=== PATIENT | male | born 1985 | race Caucasian/White ===

== ENCOUNTER 2021-03-24 15:00 | Emergency (ER) | payer OTHER ==
[2021-03-24 16:00] VITALS: TEMP 97.8
[2021-03-24] MEDS ORDERED: LIDOCAINE 1% INJ 10MG/ML (20 ML MDV) SQ ONE (17:17)
--- NOTE | 2021-03-24 17:17 | ED ---
General Adult HPI <RadhaKrissy Levar - Last Filed: 03/24/21 17:57> - General Source: patient, RN notes reviewed, old records reviewed Mode of arrival: ambulatory Limitations: no limitations <Mani Montano - Last Filed: 03/24/21 18:22> - General Chief complaint: Head Injury Stated complaint: Facial Injury I.H.S. Time Seen by Provider: 03/24/21 16:00 - History of Present Illness Initial comments: This is a 35-year-old male who presents emergency Department complaining that she was at work and ejaculate him in the nose. Patient states he did not lose consciousness, he was not struck in the head denies any headache denies any neck pain. Patient states he was dazed for a second but never felt the ground. Patient states after swallowing some blood from the nose he vomited. Patient states currently he only complains that his nose is bleeding and his little tenderness under his right eye. Patient denies any other injury at this time. Patient denies any numbness or weakness. (Mani Montano) - Related Data Previous Rx's Medication Instructions Recorded Cephalexin [Keflex] 500 mg PO Q6HR #28 cap 03/24/21 Allergies Allergy/AdvReac Type Severity Reaction Status Date / Time No Known Allergies Allergy Verified 03/24/21 16:00 Review of Systems ROS Other: All systems not noted in ROS Statement are negative. <RadhaKrissy L - Last Filed: 03/24/21 17:57> ROS Other: All systems not noted in ROS Statement are negative. <Mani Montano - Last Filed: 03/24/21 18:22> ROS Statement: Those systems with pertinent positive or pertinent negative responses have been documented in the HPI. Past Medical History Past Medical History: No Reported History History of Any Multi-Drug Resistant Organisms: None Reported Past Surgical History: No Surgical Hx Reported Past Psychological History: No Psychological Hx Reported Smoking Status: Current every day smoker Past Alcohol Use History: Occasional Past Drug Use History: None Reported <Mani Montano - Last Filed: 03/24/21 18:22> General Exam Limitations: no limitations <Mani Montano - Last Filed: 03/24/21 18:22> - General Exam Comments Initial Comments: GENERAL: Patient is well-developed and well-nourished. Patient is nontoxic and well- hydrated and is in mild distress. ENT: Neck is soft and supple. No significant lymphadenopathy is noted. Oropharynx is clear. Moist mucous membranes. Neck has full range of motion without eliciting any pain. EYES: The sclera were anicteric and conjunctiva were pink and moist. Extraocular movements were intact and pupils were equal round and reactive to light. Patient has ecchymosis in the inferior orbital region on the right he also has a laceration measuring about 1/2 cm on the bridge of his nose and that area is also tender to palpation. PULMONARY: Unlabored respirations. Good breath sounds bilaterally. No audible rales rhonchi or wheezing was noted. CARDIOVASCULAR: There is a regular rate and rhythm without any murmurs gallops or rubs. ABDOMEN: Soft and nontender with normal bowel sounds. SKIN: Laceration 1.5 cm the nasal bridge NEUROLOGIC: Patient is alert and oriented x3. Cranial nerves II through XII are grossly intact. Motor and sensory are also intact. Normal speech, volume and content. Symmetrical smile. MUSCULOSKELETAL: Normal extremities with adequate strength and full range of motion. PSYCHIATRIC: Normal psychiatric evaluation. (Mani Montano) Course Vital Signs 03/24/21 15:58 Temperature 97.8 F Pulse Rate 94 Respiratory 18 Rate Blood Pressure 162/123 O2 Sat by Pulse 98 Oximetry Procedures - Laceration Laceration #1 Consent Obtained: verbal consent Indication: laceration Site: face (nasal bridge) Size (cm): 1 Description: linear Depth: simple, single layer Anesthetic Used: lidocaine 1% Anesthesia Technique: local infiltration Amount (mls): 2 Pre-repair: irrigated extensively Type of Sutures: nylon Size of Sutures: 5-0 Number of Sutures: 3 Technique: simple, interrupted Patient Tolerated Procedure: well <Krissy Garcia - Last Filed: 03/24/21 17:57> Medical Decision Making <Mani Montano - Last Filed: 03/24/21 18:22> - Medical Decision Making CT of the brain shows no acute abnormality. CT of the facial bones shows a comminuted mildly displaced nasal fracture. Since patient was having epistaxis when it occurred patient will be given antibiotics. (Mani Montano) Disposition <Krissy Garcia Last Filed: 03/24/21 17:57> Is patient prescribed a controlled substance at d/c from ED?: No Time of Disposition: 18:21 <Mani Montano - Last Filed: 03/24/21 18:22> Clinical Impression: Nasal bones, open fracture Disposition: HOME SELF-CARE Condition: Good Instructions (If sedation given, give patient instructions): Nasal Fracture (ED) Prescriptions: Cephalexin [Keflex] 500 mg PO Q6HR #28 cap Referrals: Gee Harvey MD [STAFF PHYSICIAN] - 1-2 days
--- NOTE | 2021-03-24 17:29 | CT ---
EXAM: CT brain wo con, CT facial bones wo con CLINICAL HISTORY: Head and facial pain/injury status post trauma. COMPARISON: None TECHNIQUE: 1. Contiguous axial noncontrast images of the brain were obtained. Imaging dose reduction techniques were utilized per protocol. 2. Axial CT images of the face were obtained without contrast. Sagittal and coronal reformats were g enerated and reviewed. Dose reduction techniques were utilized per protocol. FINDINGS: Head: There is no evidence for intracranial hemorrhage, mass effect, midline shift or acute large vessel te rritory infarct. The white matter is grossly preserved. Ventricular size and configuration is within normal limits for degree of parenchymal volume. The paranasal sinuses are clear. The mastoid air cells are clear. No evidence for calvarial fracture. Maxillofacial: There is comminuted and mildly displaced fracture of the bilateral nasal bones. There is overlying so ft tissue edema and adjacent mild right periorbital soft tissue edema. The pterygoid plates, zygomati c arches,, mandible and bilateral orbits are otherwise intact. The paranasal sinuses and mastoid air cells are adequately aerated. IMPRESSION: Nasal bone fracture. No acute intracranial abnormality.
[2021-03-24 18:44] VITALS: BP 154/87; PULSE 68; RESP 20
== END 2021-03-24 18:44 | disposition home or self-care (01) ==
LOC: EC 15:00
DX: S02.2XXB Fracture of nasal bones, initial encounter for open fracture (principal); S01.21XA Laceration without foreign body of nose, initial encounter; F17.200 Nicotine dependence, unspecified, uncomplicated; W50.0XXA Accidental hit or strike by another person, initial encounter; Y99.0 Civilian activity done for income or pay
CPT/HCPCS: 70486; 70450; 99283; 12011; J2001

== ENCOUNTER 2021-05-29 01:16 | Emergency (ER) | payer OTHER ==
[2021-05-29 01:27] VITALS: PULSE 90
[2021-05-29 03:11] LABS: Basophils % (A) 1 %; Eosinophils # (A) 0.1 k/uL (0-0.7); Eosinophils % (A) 2 %; HCT 45.8 % (39.0-53.0); HGB 15.8 gm/dL (13.0-17.5); Lymphocytes # (A) 2.1 k/uL (1.0-4.8); Lymphocytes % (A) 29 %; MCH 31.2 pg (25.0-35.0); MCHC 34.6 g/dL (31.0-37.0); MCV 90.4 fL (80.0-100.0); Mean Platelet Volume 7.8; Monocytes # (A) 0.5 k/uL (0-1.0); Monocytes % (A) 7 %; Neutrophils # (A) 4.1 k/uL (1.3-7.7); Neutrophils % (A) 59 %; Platelet Count 218 k/uL (150-450); RBC 5.07 m/uL (4.30-5.90); RDW 13.1 % (11.5-15.5); WBC 7.1 k/uL (3.8-10.6)
[2021-05-29 03:17] LABS: ALT 49 U/L (4-49); AST 38 U/L (17-59); African American GFR (CKD) >90 (>60 ml/min/1.73 sqM); Albumin 4.2 g/dL (3.5-5.0); Alkaline Phosphatase 80 U/L (38-126); Anion Gap 9 mmol/L; Blood Urea Nitrogen 17 mg/dL (9-20); Calcium 9.5 mg/dL (8.4-10.2); Carbon Dioxide 25 mmol/L (22-30); Chloride 104 mmol/L (98-107); Glucose 104 mg/dL (74-99); Magnesium 1.9 mg/dL (1.6-2.3); Non-African American GFR(CKD) >90 (>60 ml/min/1.73 sqM); Sodium 138 mmol/L (137-145); Total Bilirubin 0.6 mg/dL (0.2-1.3); Total Protein 7.1 g/dL (6.3-8.2)
--- NOTE | 2021-05-29 03:56 | ED ---
General Adult HPI - General Chief complaint: Recheck/Abnormal Lab/Rx Stated complaint: tingling in arms Time Seen by Provider: 05/29/21 02:02 Source: patient Mode of arrival: ambulatory Limitations: no limitations - History of Present Illness Initial comments: This patient is a 35-year-old man who presents to be evaluated for possible side effects related to medication he started area the patient had been diagnosed with hypertension and started on medication which he takes first dose just prior to onset of a feeling of numbness or tingling which was affecting mainly his left arm. Patient denies any chest pain, dyspnea, nausea or vomiting, diaphor esis, lightheadedness or syncope. -: hour(s) Location: head, left, upper extremity Quality: other (Tingling) Consistency: constant Improves with: none Worsens with: none - Related Data Previous Rx's Medication Instructions Recorded Cephalexin [Keflex] 500 mg PO Q6HR #28 cap 03/24/21 Allergies Allergy/AdvReac Type Severity Reaction Status Date / Time No Known Allergies Allergy Verified 05/29/21 01:24 Review of Systems ROS Statement: Those systems with pertinent positive or pertinent negative responses have been documented in the HPI. ROS Other: All systems not noted in ROS Statement are negative. Constitutional: Denies: fever, chills, weakness Eyes: Denies: vision change Respiratory: Denies: cough, dyspnea Cardiovascular: Denies: chest pain, palpitations, syncope Gastrointestinal: Denies: abdominal pain, nausea, vomiting Genitourinary: Denies: dysuria Skin: Denies: rash Neurological: Reports: paresthesias. Denies: headache, weakness, numbness Past Medical History Past Medical History: Hypertension History of Any Multi-Drug Resistant Organisms: None Reported Past Surgical History: No Surgical Hx Reported Past Psychological History: No Psychological Hx Reported Smoking Status: Current every day smoker Past Alcohol Use History: Occasional Past Drug Use History: None Reported General Exam Limitations: no limitations General appearance: alert, in no apparent distress Head exam: Present: atraumatic, normocephalic Eye exam: Present: normal appearance. Absent: scleral icterus, conjunctival injection Neck exam: Present: normal inspection, full ROM Respiratory exam: Present: normal lung sounds bilaterally. Absent: respiratory distress, wheezes, rales, rhonchi, stridor Cardiovascular Exam: Present: regular rate, normal rhythm, normal heart sounds. Absent: systolic murmur, diastolic murmur, rubs, gallop GI/Abdominal exam: Present: soft. Absent: distended, tenderness, guarding, rebound, rigid, mass Extremities exam: Present: normal inspection, normal capillary refill. Absent: pedal edema, calf tenderness Back exam: Present: normal inspection. Absent: vertebral tenderness Neurological exam: Present: alert, CN II-XII intact. Absent: motor sensory deficit Skin exam: Present: warm, dry, intact, normal color. Absent: rash Course Vital Signs 05/29/21 05/29/21 01:25 04:15 Temperature 98.3 F 97.4 F L Pulse Rate 90 90 Respiratory 20 19 Rate Blood Pressure 169/109 169/97 O2 Sat by Pulse 96 96 Oximetry Medical Decision Making - Lab Data Result diagrams: 05/29/21 02:39 05/29/21 02:39 Lab Results 05/29/21 05/29/21 05/29/21 Range/Units 02:39 02:39 02:39 WBC 7.1 (3.8-10.6) k/uL RBC 5.07 (4.30-5.90) m/uL Hgb 15.8 (13.0-17.5) gm/dL Hct 45.8 (39.0-53.0) % MCV 90.4 (80.0-100.0) fL MCH 31.2 (25.0-35.0) pg MCHC 34.6 (31.0-37.0) g/dL RDW 13.1 (11.5-15.5) % Plt Count 218 (150-450) k/uL MPV 7.8 Neutrophils % 59 % Lymphocytes % 29 % Monocytes % 7 % Eosinophils % 2 % Basophils % 1 % Neutrophils # 4.1 (1.3-7.7) k/uL Lymphocytes # 2.1 (1.0-4.8) k/uL Monocytes # 0.5 (0-1.0) k/uL Eosinophils # 0.1 (0-0.7) k/uL Basophils # 0.0 (0-0.2) k/uL Sodium 138 (137-145) mmol/L Potassium 4.0 (3.5-5.1) mmol/L Chloride 104 (98-107) mmol/L Carbon Dioxide 25 (22-30) mmol/L Anion Gap 9 mmol/L BUN 17 (9-20) mg/dL Creatinine 0.82 (0.66-1.25) mg/dL Est GFR (CKD-EPI)AfAm >90 (>60 ml/min/1.73 sqM) Est GFR (CKD-EPI)NonAf >90 (>60 ml/min/1.73 sqM) Glucose 104 H (74-99) mg/dL Calcium 9.5 (8.4-10.2) mg/dL Magnesium 1.9 (1.6-2.3) mg/dL Total Bilirubin 0.6 (0.2-1.3) mg/dL AST 38 (17-59) U/L ALT 49 (4-49) U/L Alkaline Phosphatase 80 (38-126) U/L Troponin I <0.012 (0.000-0.034) ng/mL Total Protein 7.1 (6.3-8.2) g/dL Albumin 4.2 (3.5-5.0) g/dL Disposition Clinical Impression: Hypertension Disposition: HOME SELF-CARE Condition: Good Instructions (If sedation given, give patient instructions): Hypertension (ED) Is patient prescribed a controlled substance at d/c from ED?: No Referrals: Margy Herrera MD [Primary Care Provider] - 1-2 days
[2021-05-29 04:32] VITALS: BP 169/97; RESP 19; TEMP 97.4
== END 2021-05-29 04:15 | disposition home or self-care (01) ==
LOC: EC 01:16
DX: I10 Essential (primary) hypertension (principal); R20.2 Paresthesia of skin; F17.200 Nicotine dependence, unspecified, uncomplicated
CPT/HCPCS: 36415; 80053; 83735; 84484; 85025; 99284

== ENCOUNTER 2022-01-07 01:46 | Emergency (ER) | payer BC ==
[2022-01-07 01:54] VITALS: BP 131/87; PULSE 96; RESP 18; TEMP 98.3
--- NOTE | 2022-01-07 03:44 | ED ---
Chest Pain HPI - General Chief Complaint: Chest Pain Stated Complaint: lt arm numbness Time Seen by Provider: 01/07/22 03:36 Source: patient, RN notes reviewed Mode of arrival: ambulatory - History of Present Illness Initial Comments: This is a pleasant 36-year-old male who presents to the emergency fracture plan of intermittent chest pressure which started at about 3 PM. Patient states she was stressed out at work due to a piece of equipment not working properly. Patient states he started getting some intermittent chest pressure. He states only came for seconds at a time then went away. This occurred about 6 times. At one point the patient had some tingling in the left arm which is also resolved. Patient has no pain or pressure at this time. No headache, no fever or chills, no changes in vision or hearing, no sore throat or difficulty with speech, no neck pain, no chest pain or shortness of breath, no abdominal pain, no nausea or vomiting, no changes in urination or bowel movements, no numbness or tingling, no extremity pain, no skin rashes or lesions. Past medical, surgical, social, and family history reviewed. She does not smoke cigarettes but does vape. Patient has no family history of cardiac disease. There is a family history of hypertension first-degree relatives. - Related Data Previous Rx's Medication Instructions Recorded Cephalexin [Keflex] 500 mg PO Q6HR #28 cap 03/24/21 Allergies Allergy/AdvReac Type Severity Reaction Status Date / Time No Known Allergies Allergy Verified 01/07/22 01:54 Review of Systems ROS Statement: Those systems with pertinent positive or pertinent negative responses have been documented in the HPI. ROS Other: All systems not noted in ROS Statement are negative. Past Medical History Past Medical History: Hypertension History of Any Multi-Drug Resistant Organisms: None Reported Past Surgical History: No Surgical Hx Reported Past Psychological History: No Psychological Hx Reported Smoking Status: Former smoker Past Alcohol Use History: Occasional Past Drug Use History: None Reported General Exam - General Exam Comments Initial Comments: She no distress. Patient does not appear to be ill or toxic. General appearance: alert, in no apparent distress Head exam: Present: atraumatic, normocephalic, normal inspection Eye exam: Present: normal appearance, PERRL, EOMI. Absent: scleral icterus, conjunctival injection, periorbital swelling ENT exam: Present: normal exam, mucous membranes moist Neck exam: Present: normal inspection. Absent: tenderness, meningismus, lymphadenopathy Respiratory exam: Present: normal lung sounds bilaterally. Absent: respiratory distress, wheezes, rales, rhonchi, stridor Cardiovascular Exam: Present: regular rate, normal rhythm, normal heart sounds. Absent: systolic murmur, diastolic murmur, rubs, gallop, clicks GI/Abdominal exam: Present: soft, normal bowel sounds. Absent: distended, tenderness, guarding, rebound, rigid Extremities exam: Present: normal inspection, full ROM, normal capillary refill. Absent: tenderness, pedal edema, joint swelling, calf tenderness Back exam: Present: normal inspection Neurological exam: Present: alert, oriented X3, CN II-XII intact Psychiatric exam: Present: normal affect, normal mood Skin exam: Present: warm, dry, intact, normal color. Absent: rash Course Vital Signs 01/07/22 01:52 Temperature 98.3 F Pulse Rate 96 Respiratory 18 Rate Blood Pressure 131/87 O2 Sat by Pulse 98 Oximetry Chest Pain [facility] [place] [facility] Patient's heart score is 2 for hypertension and tobacco use. Patient's cephalgia does not appear to be consistent with cardiac ischemia. EKG done at 1:54 AM and read by the ED attending physician reveals moderate voltage criteria for LVH, no evidence of acute ST or T-wave changes. Normal axis. Normal intervals. Rate of 92. No significant change from previous study I did reevaluate the patient prior to discharge. This chest pain is really not consistent with cardiac ischemia. Patient's troponin was negative. No acute changes on EKG. Patient previously has seen Dr. Perales and had a negative c ardiac stress test and echocardiogram done. I did tell the patient to take an 81 mg aspirin per day. I did give patient the option of staying for a 3 hour troponin. Resource benefits of significant disease were discussed to include heart scoring. Patient elected to go home. Patient sent home to shared decision-making. Patient aware of return parameters. Patient aware of the risks. Patient is lucid and able make his own medical decisions. Patient told to follow-up with his regular physician as well as the button bradder be in the same side. Patient was told to return to the ER for any signs or symptoms worsen. Told to return immediately if any other problems arise. All questions answered. Treatment plan discussed. Patient in agreement Every effort has been made to ensure accuracy of this dictation. However, due to the limitations of electronic medical records and dictation devices, errors in charting still occur. The case was discussed in detail with ED attending physician. Presentation, findings, treatment plan discussed in detail. Master Machinist Dr. Vargas Disposition Clinical Impression: Atypical chest pain, Anxiety Disposition: HOME SELF-CARE Condition: Good Instructions (If sedation given, give patient instructions): Chest Pain (ED) Additional Instructions: Follow-up with your regular doctor as well as the button bradder. Take an 81 mg aspirin per day. Return to the ER immediately if any symptoms return or any other problems arise. Is patient prescribed a controlled substance at d/c from ED?: No Referrals: Margy Herrera MD [Primary Care Provider] - 1-2 days Tk Perales DO [STAFF PHYSICIAN] - 01/09/22 Time of Disposition: 04:50
[2022-01-07 04:00] LABS: Basophils % (A) 1 %; Eosinophils # (A) 0.1 k/uL (0-0.7); Eosinophils % (A) 1 %; HCT 43.3 % (39.0-53.0); HGB 14.1 gm/dL (13.0-17.5); Lymphocytes # (A) 1.8 k/uL (1.0-4.8); Lymphocytes % (A) 25 %; MCH 28.6 pg (25.0-35.0); MCHC 32.5 g/dL (31.0-37.0); MCV 87.9 fL (80.0-100.0); Mean Platelet Volume 7.5; Monocytes # (A) 0.4 k/uL (0-1.0); Monocytes % (A) 6 %; Neutrophils # (A) 4.5 k/uL (1.3-7.7); Neutrophils % (A) 65 %; Platelet Count 232 k/uL (150-450); RBC 4.93 m/uL (4.30-5.90); RDW 12.5 % (11.5-15.5); WBC 6.9 k/uL (3.8-10.6)
[2022-01-07 04:14] LABS: ALT 35 U/L (4-49); AST 38 U/L (17-59); African American GFR (CKD) >90 (>60 ml/min/1.73 sqM); Albumin 4.4 g/dL (3.5-5.0); Alkaline Phosphatase 78 U/L (38-126); Anion Gap 12 mmol/L; Blood Urea Nitrogen 16 mg/dL (9-20); Calcium 9.6 mg/dL (8.4-10.2); Carbon Dioxide 24 mmol/L (22-30); Chloride 101 mmol/L (98-107); Glucose 114 mg/dL (74-99); Magnesium 1.9 mg/dL (1.6-2.3); Non-African American GFR(CKD) >90 (>60 ml/min/1.73 sqM); Potassium 4.1 mmol/L (3.5-5.1); Sodium 137 mmol/L (137-145); Total Bilirubin 0.6 mg/dL (0.2-1.3); Total Protein 7.1 g/dL (6.3-8.2)
--- NOTE | 2022-01-07 04:22 | XR ---
EXAMINATION TYPE: XR chest 1V portable DATE OF EXAM: 01/07/2022 COMPARISON: 07/09/2021 HISTORY: Chest pressure TECHNIQUE: Single view FINDINGS: There is no heart failure nor confluent pneumonic infiltrate. Costophrenic angles are clear . There are no hilar masses. There are chest leads. No pleural effusion. IMPRESSION: No active cardiopulmonary disease. No change.
== END 2022-01-07 05:16 | disposition home or self-care (01) ==
LOC: EC 01:46
DX: R07.89 Other chest pain (principal); F41.9 Anxiety disorder, unspecified; I10 Essential (primary) hypertension; Z87.891 Personal history of nicotine dependence
CPT/HCPCS: 36415; 71045; 80053; 83735; 84484; 85025; 99285

== ENCOUNTER 2022-06-02 05:18 | Emergency (ER) | payer BC ==
[2022-06-02 05:25] VITALS: TEMP 97.7
[2022-06-02 05:47] LABS: Basophils # (A) 0.1 k/uL (0-0.2); Basophils % (A) 1 %; Eosinophils # (A) 0.1 k/uL (0-0.7); Eosinophils % (A) 2 %; HCT 44.3 % (39.0-53.0); HGB 15.5 gm/dL (13.0-17.5); Lymphocytes # (A) 2.4 k/uL (1.0-4.8); Lymphocytes % (A) 33 %; MCH 30.1 pg (25.0-35.0); MCHC 34.9 g/dL (31.0-37.0); MCV 86.2 fL (80.0-100.0); Mean Platelet Volume 7.4; Monocytes # (A) 0.4 k/uL (0-1.0); Monocytes % (A) 6 %; Neutrophils # (A) 4.1 k/uL (1.3-7.7); Neutrophils % (A) 57 %; Platelet Count 254 k/uL (150-450); RBC 5.14 m/uL (4.30-5.90); RDW 12.4 % (11.5-15.5); WBC 7.2 k/uL (3.8-10.6)
[2022-06-02 05:58] LABS: ALT 43 U/L (4-49); AST 38 U/L (17-59); African American GFR (CKD) >90 (>60 ml/min/1.73 sqM); Albumin 4.8 g/dL (3.5-5.0); Alkaline Phosphatase 76 U/L (38-126); Anion Gap 9 mmol/L; Blood Urea Nitrogen 15 mg/dL (9-20); Calcium 9.5 mg/dL (8.4-10.2); Carbon Dioxide 27 mmol/L (22-30); Chloride 101 mmol/L (98-107); Glucose 123 mg/dL (74-99); Non-African American GFR(CKD) >90 (>60 ml/min/1.73 sqM); Potassium 3.6 mmol/L (3.5-5.1); Sodium 137 mmol/L (137-145); Total Bilirubin 0.5 mg/dL (0.2-1.3)
[2022-06-02 06:15] LABS: INR 0.9 (<1.2); Partial Thromboplastin Time 26.2 sec (22.0-30.0); Prothrombin Time 9.6 sec (9.0-12.0)
--- NOTE | 2022-06-02 07:46 | XR ---
EXAMINATION TYPE: XR chest 2V DATE OF EXAM: 06/02/2022 7:08 AM COMPARISON: Chest radiographs from 01/07/2022 TECHNIQUE: XR chest 2V Frontal and lateral views of the chest. CLINICAL INDICATION:Male, 36 years old with history of chest pain; FINDINGS: Lungs/Pleura: There is no evidence of pleural effusion, focal consolidation, or pneumothorax. Pulmonary vascularity: Unremarkable. Heart/mediastinum: Cardiomediastinal silhouette is unremarkable. Musculoskeletal: No acute osseous pathology. IMPRESSION: No acute cardiopulmonary disease/process.
--- NOTE | 2022-06-02 08:05 | ED ---
Chest Pain HPI - General Chief Complaint: Chest Pain Stated Complaint: HTN,chest pain Time Seen by Provider: 06/02/22 07:25 Source: patient, RN notes reviewed, old records reviewed Mode of arrival: ambulatory Limitations: no limitations - History of Present Illness Initial Comments: 36-year-old well-appearing male presents to the emergency room with complaints of left-sided chest pain while in the shower at this morning at 4:30. Patient states pain lasted approximately 15 minutes radiated down into his left arm. Denies any diaphoresis, no nausea vomiting or shortness of breath. States pain has resolved at this time. States his last stress test was with Dr. Perales approximately 3 months ago. MD Complaint: chest pain -: hour(s) (4) Onset: other (while in shower) Pain Radiation: LUE Severity scale (1-10): 0 Consistency: now resolved Treatments Prior to Arrival: aspirin - Related Data Previous Rx's Medication Instructions Recorded Cephalexin [Keflex] 500 mg PO Q6HR #28 cap 03/24/21 Allergies Allergy/AdvReac Type Severity Reaction Status Date / Time No Known Allergies Allergy Verified 01/07/22 01:54 Review of Systems ROS Statement: Those systems with pertinent positive or pertinent negative responses have been documented in the HPI. ROS Other: All systems not noted in ROS Statement are negative. EKG Findings - EKG Results: EKG: sinus rhythm (Ventricular rate 94, OH interval 0.157, QRS 0.94, QTC 0.408; normal axis) Past Medical History Past Medical History: Hypertension History of Any Multi-Drug Resistant Organisms: None Reported Past Surgical History: No Surgical Hx Reported Past Psychological History: No Psychological Hx Reported Smoking Status: Vaper Past Alcohol Use History: Occasional Past Drug Use History: None Reported General Exam Limitations: no limitations General appearance: alert, in no apparent distress Head exam: Present: atraumatic Eye exam: Present: normal appearance. Absent: scleral icterus, conjunctival injection Respiratory exam: Present: normal lung sounds bilaterally. Absent: respiratory distress, accessory muscle use Cardiovascular Exam: Present: regular rate GI/Abdominal exam: Present: soft. Absent: distended, tenderness, rigid Extremities exam: Absent: pedal edema Neurological exam: Present: alert, oriented X3 Psychiatric exam: Present: normal affect, normal mood Skin exam: Present: warm, dry, normal color. Absent: cyanosis, diaphoretic, pallor Course Vital Signs 06/02/22 06/02/22 05:22 08:21 Temperature 97.7 F Pulse Rate 99 73 Respiratory 18 15 Rate Blood Pressure 155/103 127/88 O2 Sat by Pulse 98 98 Oximetry Chest Pain MDM - MDM Patient has been pain-free while in the emergency room. HEART score low He states had a recent stress test with Dr Perales 3 months ago that was negat theo This is atypical chest pain. Patient will be referred back to his primary care and placement coordinator. He is agreeable to this plan of care. Vital signs are stable. Case discussed with Dr. Vicente Was pt. sent in by a medical professional or institution? @ -No Did you speak to anyone other than the patient for history? @ -No Did you review nursing and triage notes? @ -Yes I agree Were old charts reviewed? @ -Old EKG Differential Diagnosis? @ -Differential Chest Pain: Stable Angina, Unstable Angina, STEMI, NSTEMI Aortic Dissection, Pneumothorax, Musculoskeletal, Esophageal Spasm GERD, Cholecystitis, Pancreatitis, Zoster, this is not meant to be an all-inclusive list. EKG interpreted by me (3pts min.)? @ -Yes X-rays interpreted by me (1pt min.)? @ -[none] CT interpreted by me (1pt min.)? @ -None U/S interpreted by me (1pt. min.)? @ -None What testing was considered but not performed? (CT, X-rays, U/S, labs)? Why? @ None What meds were considered but not given? Why? @ -None Did you discuss the management of the patient with other professionals? @ -No Did you reconcile home meds? @ -No Was smoking cessation discussed for >3mins.? @ -No Was critical care preformed (if so, how long)? @ -No Were there social determinants of health that impacted care today? How? (Homelessness, low income, unemployed, alcoholism, drug addiction, transportation, low edu. Level, literacy, decrease access to med. care, penitentiary, rehab)? @ -None Was there de-escalation of care discussed even if they declined? (Discuss DNR or withdrawal of care, Hospice)? @ -No What co-morbidities impacted this encounter? (DM, HTN, Smoking, COPD, CAD, Cancer, CVA, Hep., AIDS, mental health diagnosis, sleep apnea, morbid obesity)? @ -Hypertension Was patient admitted / discharged? @ -Discharged Undiagnosed new problem with uncertain prognosis? @ -[none] Drug Therapy requiring intensive monitoring for toxicity (Heparin, Nitro, Insulin, Cardizem)? @ -No Were any procedures done? @ -No Diagnosis/symptom? @ -Chest pain Acute, or Chronic, or Acute on Chronic? @ -Acute Uncomplicated (without systemic symptoms) or Complicated (systemic symptoms)? @ -Uncomplicated Side effects of treatment? @ -[none] Exacerbation, Progression, or Severe Exacerbation] @ -[no] Poses a threat to life or bodily function? @ -[no] Disposition Clinical Impression: Atypical chest pain Disposition: HOME SELF-CARE Condition: Good Instructions (If sedation given, give patient instructions): Chest Pain (ED) Additional Instructions: Please follow-up with your primary care doctor and placement coordinator this week. Return to the emergency room with any new or concerning symptoms. Is patient prescribed a controlled substance at d/c from ED?: No Referrals: Margy Herrera MD [Primary Care Provider] - 1-2 days Tk Perales DO [Family Provider] - 1-2 days Time of Disposition: 08:11
[2022-06-02 08:22] VITALS: BP 127/88; PULSE 73; RESP 15
== END 2022-06-02 08:28 | disposition home or self-care (01) ==
LOC: EC 05:18
DX: R07.89 Other chest pain (principal); I10 Essential (primary) hypertension; F17.290 Nicotine dependence, other tobacco product, uncomplicated
CPT/HCPCS: 36415; 71046; 80053; 84484; 85025; 85610; 85730; 93005; 99285